=== PATIENT | male | born 1960 | race Caucasian/White ===

== ENCOUNTER 2020-10-08 18:51 | Emergency (ER) | payer OTHER, SELFPAY ==
[2020-10-08 18:56] VITALS: BP 182/89; PULSE 73; RESP 12; TEMP 36.8; O2SAT 100
[2020-10-08 19:02] VITALS: BP 182/89; PULSE 73; RESP 12; TEMP 36.8; O2SAT 100
--- NOTE | 2020-10-08 19:02 | ED.DENTAL ---
HPI - Dental/Oral General Chief complaint: Dental/Oral Stated complaint: toothache Source: patient and RN notes reviewed Limitations: no limitations History of Present Illness HPI Narrative: The patient, who is occasional drinker/marijuana only smoker and is on several routine meds, presents with tooth ache. Patient states he has a shorter couple day history of right lower incisor pain that is mild, worse with palpation or eating, associated with early minimal developing swelling. No fever, hoarseness, trismus; he has a dentist and has had work in that tooth previously, but not recently. Related Data Home Medications Medication Instructions Recorded Confirmed Zyrtec 10/08/20 atorvastatin 10/08/20 montelukast mg 10/08/20 omeprazole 10/08/20 paroxetine HCl mg PO 10/08/20 Allergies Allergy/AdvReac Type Severity Reaction Status Date / Time No Known Allergies Allergy Unverified 03/17/16 20:02 Review of Systems Review of Systems: General/Constitutional: No weight loss,fever Eyes: N0: Redness,discharge Ears/Nose/Throat: No: Epistaxis,ear discharge Skin: No Lumps, eruption Neurologic: No Focal Weakness,Sz Hematologic: Denies: Petechiae/Purpura Exam Narrative: General Appearance: Well appearing,, Conjunctiva clear Ears: External ear normal, Auditory canal normal Nose: Normal nose Mouth/Throat: Normal appearing (with mild right lower jaw swelling), Normal lips, MM moist, Uvula midline (scattered dental caries and fillings,, with rare fracture) Neck: Supple, No adenopathy Respiratory: Airway patent, No respiratory distress, Clear to auscultation Musculoskeletal: Full ROM, Non tender, Normal strength Skin: Warm, Dry, Normal color Neurological: A&O x3, Speech clear, normal affect Course Vital Signs Vital signs: Vital Signs Temperature 98.3 F 10/08/20 18:56 Pulse Rate 73 10/08/20 18:56 Respiratory Rate 12 10/08/20 18:56 Blood Pressure 182/89 H 10/08/20 18:56 Pulse Oximetry 100 10/08/20 18:56 Temperature 98.3 F 10/08/20 19:02 Pulse Rate 73 10/08/20 19:02 Respiratory Rate 12 10/08/20 19:02 Blood Pressure 182/89 H 10/08/20 19:02 Pulse Oximetry 100 10/08/20 19:02 Discharge Plan Discharge Clinical Impression: Gingivitis, Toothache Patient Disposition: Home, Self-Care Condition: Stable Instructions: Antibiotic Form, Toothache (ED) Prescriptions: New tramadol 50 mg tablet 50 mg PO TID PRN (Reason: pain) Qty: 25 RF: 0 lidocaine HCl [Lidocaine Viscous] 2 % solution 5 ml MUCOUS MEM QID PRN (Reason: pain) Qty: 100 RF: 0 amoxicillin 875 mg tablet 875 mg PO Q12H Qty: 14 RF: 0 No Action atorvastatin 10 mg tablet RF: 0 omeprazole 40 mg capsule,delayed release(DR/EC) RF: 0 paroxetine HCl 30 mg tablet PO RF: 0 montelukast 10 mg tablet RF: 0 Zyrtec RF: 0 Follow-up/Referrals: Ronda,MD Luke [Primary Care Provider] - Stand Alone Forms: Work/School Release IP
== END 2020-10-08 19:17 | disposition home or self-care (01) ==
PROVIDERS: Emergency Provider Emergency Medicine; PCP Internal Medicine
DX: K05.10 Chronic gingivitis, plaque induced (principal); K08.89 Other specified disorders of teeth and supporting structures; F12.20 Cannabis dependence, uncomplicated
CPT/HCPCS: 99203; G0463